=== PATIENT | female | born 1960 | race Caucasian/White ===

== ENCOUNTER → 2016-11-12 | Day surgery (SDC) | payer OTHER ==
[~2016-11-12] MED LIST: APREPITANT 40 MG CAP ONE; BUPIVACAINE HCL PF 0.75% 30 ML VIAL ONE; FEXO180 PO; HYDROCORTISONE SOD SUCCINATE 100 MG VIAL ONE; LACTATED RINGER'S 1000 ML INJ 1,000 ML ONE; LIDOCAINE 1.5%/EPINEPHrine 1:200,000 PF SOLN 30 ML AMP ONE; MAXA10TA2 PO; MIDAZOLAM HCL 5 MG/ML VIAL (1 ML) ONE; OMEP20CA5 PO; ONDANSETRON HCL 4 MG/2 ML VIAL IV PUSH ONE; PERC5TAB12 PO; PRED5 PO; PROPOFOL 200 MG/20 ML AMP IV ONE; RANI150 PO; REST15CA PO; ceFAZolin 2 GM PREMIX 50 ML ONE
--- NOTE | 2016-11-12 12:47 | MP ---
cc: ELFEGO YODER DATE OF SURGERY: 11/12/2016 PREOPERATIVE DIAGNOSIS Right shoulder rotator cuff tear. Right shoulder impingement syndrome. Right shoulder labral tear. POSTOPERATIVE DIAGNOSES Right shoulder rotator cuff tear. Right shoulder impingement syndrome. Right shoulder labral tear. PROCEDURE Right shoulder arthroscopic rotator cuff repair. Right shoulder arthroscopic subacromial decompression. Right shoulder arthroscopic extensive debridement of SLAP labral tear. SURGEON Dr. Elfego Yoder [employer] Elfego Villasenor PA-C ANESTHESIA General with an interscalene block. ESTIMATED BLOOD LOSS Less than 10 cc. COMPLICATIONS None. IMPLANTS USED Arthrex. JUSTIFICATION This patient is a 56-year-old female who injured the right shoulder. She has had persistence of pain in regards to her condition and failure of conservative treatment. Clinical exam as well as appropriate work-up confirmed the above-named findings. The patient was counseled as to the risks, benefits and alternatives to the above-named proposed surgical procedure and she did wish to proceed with surgery. PROCEDURE IN DETAIL Written consent was obtained. The patient was identified by name. Interscalene block anesthesia was administered to the right upper extremity by the anesthesiologist. The patient was taken to the operating room and general anesthesia was administered as well as two grams of IV Ancef. The patient was carefully turned to a left lateral decubitus position. A lateral arm roll was placed. All bony prominences and pressure points were well-padded. The patient's neck was carefully monitored and kept neutral. An arthroscopic arm valentine was gently applied to the right upper extremity with 10 pounds of traction placed. The right shoulder was prepped and draped using isopropyl alcohol, Hibiclens solution and DuraPrep solution. After a timeout was performed a standard anterior and posterior glenohumeral arthroscopic portal was established. The glenohumeral joint revealed extensive labral tearing along the anterior, superior and posterior portions. An arthroscopic shaver was introduced from the anterior portal and extensive debridement of the labrum was performed from the 3 o'clock position up to the 12 o'clock position and back down to the 9 o'clock position. No evidence of significant chondromalacia was noted. Biceps origin was intact. There was evidence of full-thickness supraspinatus rotator cuff tear as visualized from the glenohumeral joint. Attention was turned to the subacromial space where there was evidence of impingement with bursitis. An arthroscopic shaver was introduced from a lateral portal. A subacromial decompression was performed. The shaver was used to perform extensive bursectomy. The arthroscopic bur was used to perform an acromioplasty and the cautery device was used to release the coracoacromial ligament. The bur was used to decorticate the greater tuberosity in preparation for rotator cuff tendon repair. An Arthrex Scorpion device was used to shuttle #2 FiberTape suture through the anterior and posterior portions of the torn tendon. #2 FiberLink suture was placed along the far posterior portions. At this point the sutures were placed through the eyelet of an Arthrex 4.75 mm Bio-SwiveLock anchor. The sutures were tensioned and the anchor was inserted into the greater tuberosity for rotator cuff tendon repair. After insertion of the anchor the repair was probed and noted to have good stability and fixation. At the conclusion of the surgical procedure the arthroscopic portals were closed with 3-0 Prolene suture. Sterile dressing applied. The patient was placed in a sling and swathe immobilizer. The patient tolerated the procedure well with no intraoperative complications noted. Elfego Villasenor, physician insurance underwriting assistant certified, was present during the entire procedure to include patient positioning and the procedure itself. The medical necessity of a physician insurance underwriting assistant was indicated in this case due to the complexity of the procedure. He assisted with manipulation of the arm and also manipulation of the camera. He assisted with shuttling sutures and also implantation of suture anchor for purpose of rotator cuff tendon repair. MD HENNY Howell/ROYCE /8:17 AM /12:24 PM
== END | disposition home or self-care (01) ==
LOC: ESDC 06:05
PROVIDERS: ATTEND Orthopaedic Surgery Sports Medicine
DX: M75.121 Complete rotator cuff tear or rupture of right shoulder, not specified as traumatic (principal); M75.41 Impingement syndrome of right shoulder; S43.401A Unspecified sprain of right shoulder joint, initial encounter
CPT/HCPCS: 01630; 01991; 29823; 29826; 29827; 64417; C1713; J0690; J1720; J2250; J2405; J7120; J8501

== ENCOUNTER 2017-06-24 07:44 | Emergency (ER) | payer OTHER ==
[~2017-06-24] VITALS: Ht 160 cm; Wt 90.1 kg
[~2017-06-24 07:44] MED LIST changes: -APREPITANT 40 MG CAP ONE; -BUPIVACAINE HCL PF 0.75% 30 ML VIAL ONE; -HYDROCORTISONE SOD SUCCINATE 100 MG VIAL ONE; -LACTATED RINGER'S 1000 ML INJ 1,000 ML ONE; -LIDOCAINE 1.5%/EPINEPHrine 1:200,000 PF SOLN 30 ML AMP ONE; -MIDAZOLAM HCL 5 MG/ML VIAL (1 ML) ONE; -ONDANSETRON HCL 4 MG/2 ML VIAL IV PUSH ONE; -PROPOFOL 200 MG/20 ML AMP IV ONE; -ceFAZolin 2 GM PREMIX 50 ML ONE
[2017-06-24 07:46] VITALS: BP 162/97; PULSE 92; RESP 18; TEMP 98.2; O2SAT 94
[2017-06-24] MEDS ORDERED: PRED2.5T PO (07:57)
[2017-06-24] MEDS ORDERED: METH2.5T PO (07:57)
[2017-06-24 08:01] LABS: BILIRUBIN, URINE NEG (NEG); BLOOD, URINE LARGE (NEG); GLUCOSE,URINE NEG (NEG); KETONE, URINE NEG (NEG); NITRITE,URINE NEG (NEG); URINE LEUKOCYTE ESTERASE NEG (NEG)
[2017-06-24 08:03] LABS: URINE COLOR RED (YELLW/STRAW)
[2017-06-24 08:04] LABS: RBC, URINE INNUM /hpf (0-3); SQUAMOUS EPITHELIAL CELL URINE 0-5 /hpf (0-5)
--- NOTE | 2017-06-24 08:06 | PD ---
HPI Chief Complaint: Complaint Time Seen by Provider: 07:57 Travel History International Travel<30 days: No Contact w/Intl Traveler<30days: No Traveled to known affect area: No History of Present Illness HPI This patient complains of noticing some blood in her urine this morning. Duration is 2 hours. No fever or flank pain. No injury. She is not having vaginal bleeding. She noticed blood in her urine and came for evaluation. At this point she feels well and symptoms are mild. PFSH Past Medical History Asthma: Yes Blood Disorders: Yes (anemia) Anxiety: Yes (occasional) Heart Rhythm Problems: No Cancer: No Cardiovascular Problems: Yes High Cholesterol: No Chest Pain: No Congestive Heart Failure: No COPD: No Cerebrovascular Accident: No Diminished Hearing: No Endocrine: No Gastrointestinal Disorders: Yes GERD: Yes Genitourinary: No Headaches: No Hepatitis: No Hiatal Hernia: No Hypertension: Yes Immune Disorder: No Kidney Stones: No Neurologic: No Psychiatric: No Reproductive: No Respiratory: Yes (SARCOIDOSIS) Migraines: Yes Myocardial Infarction: No Renal Failure: No Seizures: No Sleep Apnea: Yes Ulcer: No ?: Not Menopausal: Yes Past Surgical History Abdominal Surgery: Yes (APPENDECTOMY,CHOLECYSTECTOMY) Appendectomy: Yes Cardiac Surgery: No Cholecystectomy: Yes Ear Surgery: No Endocrine Surgery: No Eye Surgery: No Genitourinary Surgery: No Gynecologic Surgery: Yes (HYSTERECTOMY) Hysterectomy: Yes Oral Surgery: No Pacemaker: No Thoracic Surgery: Yes (LOBECTOMY LEFT LUNG FOR BENIGN TUMORS) Other Surgery: Yes (GASTRIC DILITATION) Family History Family Hypercholesterolemia: Yes Social History Alcohol Use: Yes (ONCE WEEKLY) Tobacco Use: No Substance Use: No Allergies-Medications (Allergen,Severity, Reaction): Coded Allergies: No Known Allergies (Verified Adverse Reaction, Unknown, 06/24/17) Reported Meds & Prescriptions Reported Meds & Active Scripts Active Reported Prednisone 2.5 Mg Tab 2.5 Mg PO DAILY Methotrexate 2.5 Mg Tab 15 Mg PO Q7D Review of Systems General / Constitutional: No: Fever Eyes: No: Visual changes HENT: No: Headaches Cardiovascular: No: Chest Pain or Discomfort Respiratory: No: Shortness of Breath Gastrointestinal: No: Abdominal Pain Genitourinary: Positive: Hematuria, No: Dysuria Musculoskeletal: No: Pain Skin: No Rash Neurologic: No: Weakness Psychiatric: No: Depression Endocrine: No: Polydipsia Hematologic/Lymphatic: No: Easy Bruising Physical Exam Narrative GASTROINTESTINAL: Abdomen soft, non-tender, nondistended. Positive bowel sounds. No hepato-splenomegaly, or palpable masses. No guarding. SKIN: Focused skin assessment reveals no rash or ulcers. Skin is warm and dry. Palpation shows no induration or nodules. Psych: Normal mood and affect. Normal insight and judgment. Data Data Last Documented VS Vital Signs Date Time Temp Pulse Resp B/P (MAP) Pulse Ox O2 Delivery O2 Flow Rate FiO2 06/24/17 07:46 98.2 92 18 162/97 (118) 94 Orders Orders Urinalysis - C+S If Indicated (06/24/17 07:46) Urine Culture (06/24/17 07:50) Labs Laboratory Tests Test 06/24/17 07:50 Urine Collection Type CLEAN CATCH Urine Color RED Urine Turbidity MARKED Urine pH 6.0 Urine Specific [place] 1.015 Urine Protein 100 mg/dL Urine Glucose (UA) NEG mg/dL Urine Ketones NEG mg/dL Urine Occult Blood LARGE Urine Nitrite NEG Urine Bilirubin NEG Urine Leukocyte Esterase NEG Urine RBC INNUM /hpf Urine WBC 20-24 /hpf Urine Squamous Epithelial Cells 0-5 /hpf Microscopic Urinalysis Comment CULTURE INDICATED Urine Collection Time 07:50 MDM Medical Decision Making Medical Screen Exam Complete: Yes Emergency Medical Condition: Yes Medical Record Reviewed: Yes Differential Diagnosis UTI, bladder cancer, kidney stone Narrative Course I have reviewed the patient's electronic medical record. Urinalysis shows innumerable red cells and will be cultured Recommending urology follow-up Diagnosis Primary Impression: Hematuria Qualified Codes: R31.0 - Gross hematuria Additional Instructions: Follow-up the urologist Med/Other Pt SpecificInfo: Other Disposition: 01 DISCHARGE HOME Condition: Stable Hua Garrett MD Jun 24, 2017 08:06
[2017-06-24 08:47] VITALS: BP 133/77; TEMP 98.1
== END 2017-06-24 08:47 | disposition home or self-care (01) ==
LOC: PHED 07:44
DX: R31.0 Gross hematuria (principal); J45.909 Unspecified asthma, uncomplicated; F41.9 Anxiety disorder, unspecified; K21.9 Gastro-esophageal reflux disease without esophagitis; I10 Essential (primary) hypertension; D86.9 Sarcoidosis, unspecified; Z79.899 Other long term (current) drug therapy
CPT/HCPCS: 81001; 87086; 99283